=== PATIENT | female | born 1995 | race Caucasian/White ===

== ENCOUNTER 2022-05-12 07:11 | Day surgery (SDC) | payer OTHER ==
[2022-05-10 15:41] VITALS: BMI 30.9
[2022-05-12] MEDS ORDERED: Oxymetazoline HCl 0.05% (30 ML BOT) ONE ×2 (07:47→09:04)
[2022-05-12] MEDS ORDERED: Famotidine/PF 20 mg/2ml Vial ONE (09:00)
[2022-05-12] MEDS ORDERED: Meperidine HCl/PF 25 MG/ML VIAL ONE (09:00)
[2022-05-12] MEDS ORDERED: fentaNYL 50 mcg/mL 1 mL Vial ONE ×4 (09:00→10:04)
[2022-05-12] MEDS ORDERED: methylPREDNISolone Acetate 40 mg/ml Vial ONE (09:03)
[2022-05-12] MEDS ORDERED: Ferric Subsulfate (ASTRINGYN) 8 GM VIAL ONE (09:03)
[2022-05-12] MEDS ORDERED: EPINEPHrine 1 MG/ML AMP ONE (09:04)
[2022-05-12] MEDS ORDERED: Lidocaine 1% (PF) 30 ML VIAL ONE (09:04)
[2022-05-12] MEDS ORDERED: Dexamethasone 20 MG/5 ML VIAL ONE (09:13)
[2022-05-12] MEDS ORDERED: PROPOFOL 200 MG/20 ML VIAL ONE (09:13)
[2022-05-12] MEDS ORDERED: Ondansetron PF 4 MG/2 ML Vial ONE (09:13)
[2022-05-12] MEDS ORDERED: Metoclopramide HCl 10 MG/2 ML VIAL ONE (09:13)
[2022-05-12] MEDS ORDERED: Ketorolac Tromethamine 30 MG/ML VIAL ONE (09:13)
[2022-05-12] MEDS ORDERED: Lidocaine 1% PF 5 ML VIAL ONE (09:13)
[2022-05-12] MEDS ORDERED: HYDROcodone/Acetaminophen 5/325 mg Tablet ONE (12:03)
== END 2022-05-12 12:18 | disposition home or self-care (01) ==
LOC: SDC 07:11
PROVIDERS: ATTEND Otolaryngology Plastic Surgery within the Head & Neck
DX: J35.03 Chronic tonsillitis and adenoiditis (principal); K13.79 Other lesions of oral mucosa; J34.3 Hypertrophy of nasal turbinates; J34.89 Other specified disorders of nose and nasal sinuses; G47.33 Obstructive sleep apnea (adult) (pediatric); F17.290 Nicotine dependence, other tobacco product, uncomplicated; E66.9 Obesity, unspecified; Z68.31 Body mass index [BMI] 31.0-31.9, adult; Z79.899 Other long term (current) drug therapy; Z86.16 Personal history of COVID-19
CPT/HCPCS: 85014; 88302; 88304; J0171; J1030; J1100; J1885; J2001; J2175; J2405; J2704; J2765; J3010; S0028